=== PATIENT | female | born 1950 | race Caucasian/White ===

== ENCOUNTER 2016-10-21 12:34 | Emergency (ER) | payer MEDICARE, OTHER ==
[2016-10-21 13:17] LABS: BASOPHIL 0.2 % (0-2); EOSINOPHIL 0.6 % (0-7); HCT 40.7 % (37.0-47.0); HGB 13.6 g/dl (12.5-16.0); LYMPHOCYTE 36.2 % (15-48); MCH 26.3 pg (25.0-31.0); MCHC 33.4 g/dL (32.0-36.0); MCV 78.7 fL (78.0-100.0); MONOCYTE 8.3 % (0-12); NEUTROPHIL 54.7 % (41-80); PLT 356 K/uL (150-400); RBC 5.17 M/uL (4.20-5.40); WBC 12.1 K/uL (4.0-10.5)
[2016-10-21 13:21] LABS: INR 0.99 (0.9-1.2); PROTHROMBIN TIME 12.7 SECONDS (11.7-14.0); PTT 22.5 SECONDS (23.2-31.4)
[2016-10-21 13:35] LABS: ALBUMIN 4.7 g/dL (3.4-4.8); BILIRUBIN - TOTAL 0.7 mg/dL (0.1-1.0); MAGNESIUM 1.67 mg/dL (1.40-2.10); POTASSIUM 4.2 mmol/L (3.5-5.1); TOTAL PROTEIN 7.7 g/dL (6.4-8.3)
[2016-10-21 13:36] LABS: CKMB 3.52 ng/mL (0.97-4.94); MYOGLOBIN 33 ng/mL (26-65); PRO-BNP 94 pg/mL (0-125); TROPONIN T < 0.010 ng/mL
== END 2016-10-21 16:46 | disposition home or self-care (01) ==
LOC: FER 12:34
PROVIDERS: Emergency Medicine
DX: R07.9 Chest pain, unspecified (principal); R06.02 Shortness of breath; R05 Cough; I10 Essential (primary) hypertension; I48.91 Unspecified atrial fibrillation; K21.9 Gastro-esophageal reflux disease without esophagitis; Z79.899 Other long term (current) drug therapy
CPT/HCPCS: 36415; 71010; 80053; 82550; 82553; 83735; 83874; 83880; 84484; 85025; 85379; 85610; 85730; 93005

== ENCOUNTER → 2016-11-02 | Day surgery (SDC) | payer MEDICARE, OTHER ==
[~2016-11-02] VITALS: Ht 149.9 cm; Wt 67.3 kg
== END | disposition home or self-care (01) ==
LOC: FAS 07:03
DX: M75.121 Complete rotator cuff tear or rupture of right shoulder, not specified as traumatic (principal); E11.9 Type 2 diabetes mellitus without complications; Z79.84 Long term (current) use of oral hypoglycemic drugs; I48.91 Unspecified atrial fibrillation; I10 Essential (primary) hypertension; K21.9 Gastro-esophageal reflux disease without esophagitis; J45.909 Unspecified asthma, uncomplicated; Z88.3 Allergy status to other anti-infective agents; Z88.5 Allergy status to narcotic agent; Z88.8 Allergy status to other drugs, medicaments and biological substances; Z88.0 Allergy status to penicillin; Z91.040 Latex allergy status
CPT/HCPCS: C1713; J2704; J3010

== ENCOUNTER 2020-09-07 10:55 | Emergency (ER) | payer MEDICARE, OTHER ==
[~2020-09-07 10:55] MED LIST: 24HR ALLERGY REL5 MG PO; ASPIRIN CHEWABL81 MG PO; ASPIRIN325 MG PO; BACLOFEN 10MG T10 MG PO; BREO ELLIPTA 11 EACH INH; CALTRATE 600 +1 EAC1 PO; CARAFATE1 GM PO; CARDIZEM CD240 MG PO; CLARITIN10 MG PO; CLEOCIN300 MG PO; DICLOFENAC SODI75 MG PO; DITROPAN XL10 MG PO; EFFEXOR XR150 MG PO; FEOSOL325 MG PO; FLOVENT HF120 PUFFS/; GRALISE1 EACH PO; JANUMET 50-1,01 EACH PO; JARDIANCE10 MG PO; JARDIANCE25 MG PO; LIPITOR20 MG PO; MACROBID100 MG PO; METFORMIN HCL500 MG PO; NEURONTIN400 MG PO; PERCOCET 5-3251 EACH PO; PROTONIX 40MG T40 MG PO; SINGULAIR4 M1 PO; TOPROL XL 25MG25 MG PO; TRAZODONE 50MG50 MG PO; VITAMIN B-121000 MC1 PO; XARELTO20 MG PO; ZESTORETIC 10-1 EACH PO; ZESTORETIC 20-1 EAC1 PO; ZESTRIL5 MG PO; ZOFRAN4 MG PO; ZOFRAN8 MG PO; ZYVOX600 MG PO
[2020-09-07 13:29] LABS: BASOPHIL 0.4 % (0-2); EOSINOPHIL 6.3 % (0-7); HCT 32.8 % (37.0-47.0); HGB 10.2 g/dl (12.5-16.0); LYMPHOCYTE 30.5 % (15-48); MCH 26.2 pg (25.0-31.0); MCHC 31.1 g/dL (32.0-36.0); MCV 84.3 fL (78.0-100.0); MONOCYTE 9.4 % (0-12); NEUTROPHIL 53.1 % (41-80); NRBC 0; PLT 338 K/uL (150-400); RBC 3.89 M/uL (4.20-5.40); RDW 24.8 % (11.5-14.0); WBC 7.7 K/uL (4.0-10.5)
[2020-09-07 14:09] LABS: INR 2.71 (0.9-1.2); PROTHROMBIN TIME 27.4 SECONDS (11.4-13.6)
[2020-09-07 14:10] LABS: PTT 48.1 SECONDS (22.2-34.7)
[2020-09-07 14:16] LABS: ALBUMIN 3.7 g/dL (3.4-5.0); BILIRUBIN - TOTAL 1.1 mg/dL (0.2-1.0); BUN/CREAT RATIO (CALC) 21.8 RATIO; CREATININE 0.87 mg/dL (0.51-0.95); GLOBULIN (CALCULATION) 3.8 g/dL; POTASSIUM 4.4 mmol/L (3.5-5.1); TOTAL PROTEIN 7.5 g/dL (6.4-8.2)
[2020-09-07] MEDS ORDERED: PREDNISONE 10MG10 MG PO (15:11)
[2020-09-07] MEDS ORDERED: NORCO 5-325 TA1 EACH PO (15:11)
[2020-09-07] MEDS ORDERED: VIBRAMYCIN100 MG PO (15:11)
[2020-11-06] MEDS ORDERED: FLONASE ALLER15.8 ML (16:26)
[2020-11-06] MEDS ORDERED: BREO ELLIPTA 11 EACH IN (16:27)
[2020-11-06] MEDS ORDERED: OLOPATADINE HC2.5 ML EYEBOTH (16:29)
[2020-11-06] MEDS ORDERED: PREMARIN VAGINAL CRE VG (16:31)
[2020-11-06] MEDS ORDERED: PRINIVIL10 MG PO (16:34)
[2020-11-06] MEDS ORDERED: VIT D3 PO (16:34)
[2020-11-13] MEDS ORDERED: TYLENOL #31 EACH PO (06:43)
== END 2020-09-07 15:30 | disposition home or self-care (01) ==
LOC: FER 10:55
PROVIDERS: Emergency Medicine
DX: I80.9 Phlebitis and thrombophlebitis of unspecified site (principal); I48.91 Unspecified atrial fibrillation; E11.22 Type 2 diabetes mellitus with diabetic chronic kidney disease; N18.9 Chronic kidney disease, unspecified; Z88.0 Allergy status to penicillin; Z91.040 Latex allergy status; Z88.1 Allergy status to other antibiotic agents; Z88.5 Allergy status to narcotic agent; Z88.8 Allergy status to other drugs, medicaments and biological substances
CPT/HCPCS: 36415; 80053; 82550; 85025; 85610; 85730; 93971; J1170; J2405

== ENCOUNTER 2020-10-11 08:32 | Day surgery (SDCO) | payer MEDICARE, OTHER ==
[~2020-10-11] VITALS: Ht 149.9 cm; Wt 61.7 kg
[~2020-10-11 08:32] MED LIST changes: +NORCO 5-325 TA1 EACH PO; +PREDNISONE 10MG10 MG PO; +VIBRAMYCIN100 MG PO
[2020-10-11 09:40] LABS: BASOPHIL 0.4 % (0-2); EOSINOPHIL 1.8 % (0-7); HCT 16.2 % (37.0-47.0); LYMPHOCYTE 23.3 % (15-48); MCH 27.9 pg (25.0-31.0); MCHC 30.9 g/dL (32.0-36.0); MCV 90.5 fL (78.0-100.0); MONOCYTE 6.5 % (0-12); MPV 10.9 fL (6.0-9.5); NEUTROPHIL 67.4 % (41-80); NRBC 0; PLT 268 K/uL (150-400); RBC 1.79 M/uL (4.20-5.40); RDW 19.3 % (11.5-14.0); WBC 8.5 K/uL (4.0-10.5)
[2020-10-11 10:08] LABS: INR 1.47 (0.9-1.2); PROTHROMBIN TIME 16.9 SECONDS (11.4-13.6)
[2020-10-11 10:27] LABS: ALBUMIN 3.2 g/dL (3.4-5.0); CREATININE 0.88 mg/dL (0.51-0.95); GLOBULIN (CALCULATION) 3.4 g/dL; POTASSIUM 4.4 mmol/L (3.5-5.1); TOTAL PROTEIN 6.6 g/dL (6.4-8.2)
[2020-10-11 10:28] LABS: BILIRUBIN - TOTAL 0.8 mg/dL (0.2-1.0)
[2020-10-11] MEDS ORDERED: ASPIRIN EC81 MG PO (12:21)
[2020-10-11] MEDS ORDERED: VENTOLIN (2.5 MG/3 M INH (12:21)
[2020-10-11] MEDS ORDERED: NEURONTIN400 MG PO (12:23)
[2020-10-11] MEDS ORDERED: LEXAPRO 10MG TA10 MG PO (12:23)
[2020-10-11] MEDS ORDERED: SINGULAIR10 MG PO (12:24)
[2020-10-11] MEDS ORDERED: JARDIANCE10 MG PO (12:24)
[2020-10-11] MEDS ORDERED: DETROL LA4 MG PO (12:28)
[2020-10-11 22:48] LABS: HCT 27.6 % (37.0-47.0); HGB 8.7 g/dL (12.5-16.0)
[2020-10-12 06:18] LABS: BASOPHIL 0.4 % (0-2); EOSINOPHIL 2.4 % (0-7); HCT 26.2 % (37.0-47.0); LYMPHOCYTE 19.4 % (15-48); MCH 27.3 pg (25.0-31.0); MCHC 32.8 g/dL (32.0-36.0); MONOCYTE 6.6 % (0-12); NEUTROPHIL 70.7 % (41-80); NRBC 0.4; PLT 253 K/uL (150-400); RBC 3.15 M/uL (4.20-5.40); RDW 21.2 % (11.5-14.0); WBC 7.6 K/uL (4.0-10.5)
[2020-10-12 06:46] LABS: HGB 8.6 g/dl (12.5-16.0); MCV 83.2 fL (78.0-100.0)
[2020-10-12 07:09] LABS: ALBUMIN 2.9 g/dL (3.4-5.0); BILIRUBIN - TOTAL 2.5 mg/dL (0.2-1.0); CREATININE 0.84 mg/dL (0.51-0.95); FOLIC ACID (SERUM) 21.6 ng/mL (8.6-58.9); GLOBULIN (CALCULATION) 3.3 g/dL; POTASSIUM 4.4 mmol/L (3.5-5.1); TOTAL PROTEIN 6.2 g/dL (6.4-8.2)
--- NOTE | 2020-10-12 09:20 | NUR ---
PATIENT C/O NOT FEELING WELL TO AID, UPON GOING TO ROOM DAUGHTER HOLLERED OUT THAT HER MOM WAS SAYING HER CHEST WAS POUNDING, PATIENT ASSESSED AND WAS SOME LETHARGIC ALTHOUGH AROUSABLE AND ABLE TO ANSWER QUESTIONS AND TELL ME WHERE SHE WAS. PER MD RESPONDING MONITOR OK AND STRIP LATER READ WAS ST DURING AND POST THIS PERIOD. VITALS 182/88, HR-109, R-20, O2 SAT 100% RA, BS-208. EKG DONE NSR-ST. CXR ORDERED. PATIENT MORE ALERT JUST STATED SHE WASN'T FEELING WELL WHEN THIS OCCURRED AND SOME BETTER NOW. DR LOPEZ ASSESSED, RAPID ENDING AT [id number]
[2020-10-13 05:43] LABS: BASOPHIL 0.3 % (0-2); EOSINOPHIL 4.3 % (0-7); HCT 27.9 % (37.0-47.0); HGB 8.8 g/dl (12.5-16.0); LYMPHOCYTE 23.3 % (15-48); MCH 26.6 pg (25.0-31.0); MCHC 31.5 g/dL (32.0-36.0); MCV 84.3 fL (78.0-100.0); MONOCYTE 9.5 % (0-12); NEUTROPHIL 62.2 % (41-80); NRBC 0; PLT 279 K/uL (150-400); RBC 3.31 M/uL (4.20-5.40); RDW 20.1 % (11.5-14.0); WBC 6.8 K/uL (4.0-10.5)
[2020-10-13 06:13] LABS: BUN/CREAT RATIO (CALC) 14.8 RATIO; CREATININE 0.88 mg/dL (0.51-0.95); POTASSIUM 3.8 mmol/L (3.5-5.1)
[2020-10-13] MEDS ORDERED: PROTONIX 40MG T40 MG PO (10:44)
--- NOTE | 2020-10-13 14:10 | NUR ---
PT. TO D/C HOME. PT. HAS A ROLLING WALKER, CANE AND WHEELCHAIR. SHE DOES NOT HAVE A HH. SHE REPORTS HER FAMILY TO BE HELPFUL AND SUPPORTIVE.
[2020-11-06] MEDS ORDERED: FLONASE ALLER15.8 ML (16:26)
[2020-11-06] MEDS ORDERED: BREO ELLIPTA 11 EACH IN (16:27)
[2020-11-06] MEDS ORDERED: OLOPATADINE HC2.5 ML EYEBOTH (16:29)
[2020-11-06] MEDS ORDERED: PREMARIN VAGINAL CRE VG (16:31)
[2020-11-06] MEDS ORDERED: VIT D3 PO (16:34)
[2020-11-06] MEDS ORDERED: PRINIVIL10 MG PO (16:34)
[2020-11-13] MEDS ORDERED: TYLENOL #31 EACH PO (06:43)
== END 2020-10-13 13:05 | disposition home or self-care (01) ==
LOC: FER 08:32 → FMS 10:45
PROVIDERS: Allergy & Immunology Allergy; Emergency Medicine; Nurse Practitioner; ADMIT Internal Medicine
DX: D50.9 Iron deficiency anemia, unspecified (principal); I48.0 Paroxysmal atrial fibrillation; K21.9 Gastro-esophageal reflux disease without esophagitis; E11.42 Type 2 diabetes mellitus with diabetic polyneuropathy; K57.30 Diverticulosis of large intestine without perforation or abscess without bleeding; M19.90 Unspecified osteoarthritis, unspecified site; J45.909 Unspecified asthma, uncomplicated; I10 Essential (primary) hypertension; E78.5 Hyperlipidemia, unspecified; E03.9 Hypothyroidism, unspecified; Z87.891 Personal history of nicotine dependence; Z86.73 Personal history of transient ischemic attack (TIA), and cerebral infarction without residual deficits; Z91.040 Latex allergy status; Z88.0 Allergy status to penicillin; Z88.1 Allergy status to other antibiotic agents; Z88.5 Allergy status to narcotic agent; Z88.8 Allergy status to other drugs, medicaments and biological substances; Z79.01 Long term (current) use of anticoagulants; Z79.82 Long term (current) use of aspirin; Z79.84 Long term (current) use of oral hypoglycemic drugs; Z79.899 Other long term (current) drug therapy; Z20.822 Contact with and (suspected) exposure to COVID-19
CPT/HCPCS: 36415; 36430; 71045; 80048; 80053; 82607; 82746; 83615; 83880; 85014; 85018; 85025; 85610; 86850; 86900; 86901; 86922; 93005; 94640; C9113; G0378; J2916; P9016; U0002